=== PATIENT | male | born 1995 | race Caucasian/White ===

== ENCOUNTER → 2019-11-30 | Outpatient (CLI) | payer OTHER ==
[~2019-11-30] MED LIST: METHACHOLINE KIT (J7674) INH ONE
--- NOTE | 2019-12-07 11:45 | PFTRPT ---
Height: 64.00 Inches Weight: 149.00 Lbs BSA: 1.73 Diagnosis: DIAZ METHACHOLINE CHALLENGE STUDY . QUALITY: Study of excellent technical quality. PROCEDURE: Under protocol, methacholine was administered. After a dose of the diluent, FEV1 dropped 14%; therefore, the test was interrupted. Bronchodilator was given and flow rates returned to actually better than baseline. No other documentation is available. IMPRESSION: Probably positive methacholine challenge study, but clinical correlation will be necessary in view of the lack of documentation regarding the above. MTDD
== END ==
LOC: M CARPUL 11-27 13:46
PROVIDERS: ATTEND Physician Assistant
DX: R06.02 Shortness of breath (principal)